=== PATIENT | male | born 1955 | race Asian ===

== ENCOUNTER 2018-06-02 09:02 | Day surgery (SDC) | payer BC ==
[2018-06-01 15:55] VITALS: BMI 24.7
[2018-06-02 10:26] VITALS: TEMP 97.8
[2018-06-02 12:27] VITALS: BP 107/75; PULSE 80
--- NOTE | 2018-06-05 17:39 | PATH ---
Surgical Pathology Report Patient Name: MIGUEL CARBONE [facility]. Rec. #: [id number] /Age/Gender: 1955 (Age: 62) / M Account: [id number] Location: U-ENDOSCOPY Taken: 06/02/2018 Received: 06/02/2018 Reported: 06/05/2018 Physicians: Gamal Nunez M.D. Specimen(s) Received A: BX DISTAL TRANSVERSE COLON POLYP B: BX RIGHT COLON POLYP Clinical History Screening Postoperative diagnosis: Colon polyps and diverticulosis Final Diagnosis A. DISTAL TRANSVERSE COLON POLYP, BIOPSY: POLYPOID COLONIC MUCOSA WITH CRYPT DISTORTION AND REACTIVE LYMPHOID FOLLICLE IN THE LAMINA PROPRIA. NEGATIVE FOR ACTIVE COLITIS OR GRANULOMATOUS INFLAMMATION. B. RIGHT COLON POLYP, POLYPECTOMY: TUBULAR ADENOMA. Electronically Signed Yon Garcia M.D. Gross Description A. Received in formalin, labeled "distal transverse colon polyp biopsy" is a johnston, irregular portion of soft tissue measuring 0.4 cm. in greatest dimension. The specimen is submitted in toto in one cassette. B. Received in formalin, labeled "right colon polyp biopsy" are 7 johnston, irregular portions of soft tissue ranging from 0.1-0.3 cm. in greatest dimension. The specimens are submitted in toto in one cassette. DL06/02/2018 saudi06/02/2018
== END 2018-06-02 11:40 | disposition home or self-care (01) ==
LOC: JASU-ENDO 09:02
PROVIDERS: ATTEND Internal Medicine Gastroenterology
PROC: 0DBL8ZX Excision of Transverse Colon, Via Natural or Artificial Opening Endoscopic, Diagnostic (ICD-10-PCS; 2018-06-02)
PROC: 0DBK8ZX Excision of Ascending Colon, Via Natural or Artificial Opening Endoscopic, Diagnostic (ICD-10-PCS; principal; 2018-06-02 09:45)
DX: Z12.11 Encounter for screening for malignant neoplasm of colon (principal); D12.2 Benign neoplasm of ascending colon; D12.3 Benign neoplasm of transverse colon; K64.8 Other hemorrhoids; K57.30 Diverticulosis of large intestine without perforation or abscess without bleeding
CPT/HCPCS: 88305-TC

== ENCOUNTER 2023-12-09 05:15 | Day surgery (SDC) | payer BC ==
[2023-12-06 10:22] VITALS: BMI 26.7
[2023-12-09 12:07] VITALS: TEMP 97.9
[2023-12-09 12:10] VITALS: BP 162/70; PULSE 62; RESP 20
== END 2023-12-09 12:08 | disposition home or self-care (01) ==
LOC: JASU-ENDO 05:15
PROVIDERS: ATTEND Internal Medicine Gastroenterology
PROC: 0DJD8ZZ Inspection of Lower Intestinal Tract, Via Natural or Artificial Opening Endoscopic (ICD-10-PCS; principal; 2023-12-09 10:48)
DX: Z12.11 Encounter for screening for malignant neoplasm of colon (principal); K64.8 Other hemorrhoids; K57.30 Diverticulosis of large intestine without perforation or abscess without bleeding; Z86.010 Personal history of colon polyps